=== PATIENT | female | born 1995 | race African-American/Black ===

== ENCOUNTER 2017-04-09 08:04 | Emergency (ER) | payer BC, MEDICAID ==
[~2017-04-09] VITALS: Ht 157.5 cm; Wt 46.0 kg
[~2017-04-09 08:04] MED LIST: METO-293 PO; ONDA4TAB21 SL
[2017-04-09] MEDS ORDERED: KETOROLAC 30MG/ML VIAL IV STA (10:21)
[2017-04-09] MEDS ORDERED: ONDANSETRON HCL 4MG/2ML VIAL IV STA (10:21)
[2017-04-09] MEDS ORDERED: SODIUM CHLORIDE 0.9% 1,000 ML IV ONE (10:21)
[2017-04-09 11:13] LABS: HEMATOCRIT. 39.7 % (36.0-48.0); HEMOGLOBIN. 13.1 g/dL (12.0-16.0); MEAN CORPUSCULAR HEMOGLOBIN 30.1 pg (28.0-32.0); MEAN CORPUSCULAR VOLUME 91.2 fL (81.0-99.0); MEAN PLATELET VOLUME 8.6 fl (7.4-10.4); PLATELET 199 x1000/uL (130-400); RED BLOOD CELL COUNT 4.35 mill/uL (4.2-5.4); RED CELL DISTRIBUTION WIDTH 13.4 % (11.6-14.6)
[2017-04-09 11:15] LABS: INR 1.1; PROTHROMBIN TIME 11.4 sec (9.4-11.6)
[2017-04-09 11:16] LABS: CLARITY URINE CLEAR (CLEAR); COLOR URINE YELLOW (YELLOW); GLUCOSE URINE NEGATIVE (NEGATIVE); KETONES URINE NEGATIVE (NEGATIVE); LEUKOCYTE ESTERASE URINE NEGATIVE (NEGATIVE); NITRITE URINE NEGATIVE (NEGATIVE); OCCULT BLOOD URINE NEGATIVE (NEGATIVE); PROTEIN URINE NEGATIVE (NEGATIVE); SPECIFIC GRAVITY URINE 1.008 (1.005-1.030)
[2017-04-09 11:18] LABS: CHLORIDE 105 mEq/L (98-107)
[2017-04-09 11:27] LABS: CARBON DIOXIDE 26 mEq/L (21-32)
[2017-04-09 12:10] LABS: PLATELET ESTIMATE NORMAL
[2017-04-09 16:15] VITALS: BP 125/83
== END 2017-04-09 16:27 | disposition home or self-care (01) ==
LOC: ER 10:41
DX: N12 Tubulo-interstitial nephritis, not specified as acute or chronic (principal); F12.90 Cannabis use, unspecified, uncomplicated
CPT/HCPCS: 36415; 74176; 80053; 81003; 81025; 83690; 85025; 85610; 96361; 96374; 96375; 99285; J1885; J2405; J7030; Z7610

== ENCOUNTER 2023-02-17 07:25 | Emergency (ER) | payer BC, MEDICAID ==
[~2023-02-17] VITALS: Ht 157.5 cm; Wt 65.0 kg
[2023-02-17 07:39] VITALS: BP 161/109; PULSE 83; RESP 18; TEMP 98.8; O2SAT 100
[2023-02-17] MEDS ORDERED: LIDOCAINE HCL/PF 1% 10 MG/ML 5ML VIAL INFIL ONE (09:30)
[2023-02-17] MEDS ORDERED: BACITRACIN ZINC OINT UDPKT TOP ONE (09:30)
[2023-02-17] MEDS ORDERED: BACI1POW MC (09:41)
== END 2023-02-17 10:16 | disposition home or self-care (01) ==
LOC: ER 07:25
DX: S61.422A Laceration with foreign body of left hand, initial encounter (principal); X58.XXXA Exposure to other specified factors, initial encounter; Y93.89 Activity, other specified; Y92.89 Other specified places as the place of occurrence of the external cause; Y99.8 Other external cause status
CPT/HCPCS: 12001; 99282; J3490; Z7610

== ENCOUNTER 2024-10-01 09:09 | Emergency (ER) | payer BC, MEDICAID ==
[~2024-10-01] VITALS: Ht 157.5 cm; Wt 54.0 kg
[~2024-10-01 09:09] MED LIST changes: +BACI1POW MC
[2024-10-01 09:18] VITALS: O2SAT 99
[2024-10-01] MEDS: IBUPROFEN 600MG TABLET PO ONE (09:34)
[2024-10-01 09:37] VITALS: BP 137/94; PULSE 73; RESP 16; TEMP 36.8; O2SAT 99
== END 2024-10-01 12:08 | disposition home or self-care (01) ==
LOC: ER 09:09
DX: S06.0XAA Concussion with loss of consciousness status unknown, initial encounter (principal); I10 Essential (primary) hypertension; W22.01XA Walked into wall, initial encounter; X58.XXXA Exposure to other specified factors, initial encounter; Y93.89 Activity, other specified; Y92.89 Other specified places as the place of occurrence of the external cause; Y99.8 Other external cause status
CPT/HCPCS: 81025; 99284